=== PATIENT | male | born 1950 | race Caucasian/White ===

== ENCOUNTER → 2018-05-25 09:09 | Outpatient (CLI) | payer OTHER, SELFPAY ==
--- NOTE | 2018-05-25 | DI.MRI.S_ITS ---
PROCEDURE: MR LUMBAR SPINE WO CON INDICATIONS: SPINAL STENOSIS LUMBOSACRAL TECHNIQUE: Noncontrast sagittal T1 spin echo and T2 fast echo, sagittal STIR, axial T1 and T2 fast spin echo through the lumbar spine. In cases with scoliosis, additional coronal T2 fast spin echo may be performed. COMPARISON: None. FINDINGS: Image quality: Excellent. Alignment and Curvature: No plain films are available for comparison, for numbering purposes. Thus, for the purposes of this examination, 5 lumbar type vertebral bodies will be presumed, as denoted on the montage panel. This should be confirmed and correlated with plain films, prior to any lumbar spinal intervention. There is loss of normal lumbar lordosis. Schmorl's nodes invaginate the inferior L1 and superior L2 endplates, with moderate surrounding reactive signal. Small Schmorl's node invaginates the inferior L4 endplate and the inferior L5 endplate with moderate surrounding reactive signal. Moderate reactive signal within the endplates adjacent to the L2-L3 and L4-L5 intervertebral discs. Bone Marrow: Marrow is of normal overall signal. No acute vertebral body compression fractures. Spinal Cord: Conus medullaris terminates at the L1-L2 disc space level. Visualized cord demonstrates normal signal and size. Paraspinous Soft Tissues: No paravertebral masses. L1-L2: Mild disc height loss and desiccation. Mild diffuse disc bulge. Mild facet and ligamentum flavum hypertrophy. Mild epidural lipomatosis. Moderate canal stenosis. Mild bilateral foraminal stenosis. L2-L3: Severe disc height loss and desiccation. Mild diffuse disc osteophyte complex. Mild facet and ligament flavum hypertrophy. Mild epidural lipomatosis. Mild canal stenosis. Mild bilateral foraminal stenosis. L3-L4: Moderate disc desiccation. Moderate facet and ligamentum flavum hypertrophy. Mild epidural lipomatosis. Severe canal stenosis. Moderate subarticular foraminal stenosis bilaterally. L4-L5: Severe disc height loss and desiccation. Mild diffuse disc bulge. Mild facet and ligamentum flavum hypertrophy. Mild epidural lipomatosis. Moderate to severe canal stenosis. Moderate subarticular foraminal stenosis bilaterally. L5-S1: Mild facet hypertrophy bilaterally. No significant canal stenosis. Moderate subarticular foraminal stenosis bilaterally. IMPRESSION: 1. Multilevel degenerative disc and facet disease, as well as ligamentum flavum hypertrophy and epidural lipomatosis. 2. 5 lumbar type vertebral bodies were presumed for the current report. Plain films of the lumbar spine are recommended for confirmation, prior to any lumbar spinal intervention. 3. L1 and L2 Schmorl's nodes, possibly subacute 4. Multilevel canal stenoses, worst at L3-L4, where there is severe canal stenosis, and at L4-L5, where there is moderate to severe canal stenosis. 5. Multilevel foraminal stenoses, worst at L3-L4, L4-L5, and L5-S1 bilaterally where there are moderate foraminal stenoses present. Dictated by: Areli Nicole M.D. on 05/25/2018 at 10:27 Approved by: Areli Nciole M.D. on 05/25/2018 at 10:31
== END ==
PROVIDERS: PCP Internal Medicine; Visit Provider Internal Medicine
DX: M48.07 Spinal stenosis, lumbosacral region (principal); M51.36 Other intervertebral disc degeneration, lumbar region; M48.061 Spinal stenosis, lumbar region without neurogenic claudication; M51.46 Schmorl's nodes, lumbar region; E88.2 Lipomatosis, not elsewhere classified
CPT/HCPCS: 72148

== ENCOUNTER → 2021-08-05 11:35 | Outpatient (CLI) | payer OTHER, SELFPAY ==
[2021-08-05 12:54] LABS: COVID19 -Nasal RAPID Negative (Negative)
== END ==
PROVIDERS: PCP Internal Medicine; Visit Provider Family Medicine Sleep Medicine
DX: Z20.822 Contact with and (suspected) exposure to COVID-19 (principal)
CPT/HCPCS: 87635; C9803

== ENCOUNTER 2021-08-06 06:13 | Day surgery (SDC) | payer OTHER, SELFPAY ==
[2021-07-30 09:41] VITALS: BMI 28.3
[2021-08-06] VITALS (12 sets, daily range): BP systolic 92–142; BP diastolic 47–88; PULSE 60–75; RESP 10–18; TEMP 35.8–37.1; O2SAT 92–96; BMI 28.3
--- NOTE | 2021-08-06 06:30 | DI.RAD.S_ITS ---
PROCEDURE: XR HIP W PEL IF DONE RT 2V INDICATIONS: prosthesis placement/inner-op TECHNIQUE: Four intraoperative fluoroscopic spot images of the low pelvis and right hip were acquired. COMPARISON: None. FINDINGS: Bones: Right hip arthroplasty components are in place. The joint appears congruent. No unexpected fractures. Soft tissues: No suspicious soft tissue densities. IMPRESSION: Expected position of right hip arthroplasty components. Dictated by: Melvi Hurst M.D. on 08/06/2021 at 13:30 Approved by: Melvi Hurst M.D. on 08/06/2021 at 13:32
[2021-08-06] MEDS: ACETAMINOPHEN 325 MG TABLET 975 MG PO (06:59)
[2021-08-06] MEDS: CELECOXIB 200 MG CAPSULE PO (06:59)
[2021-08-06] MEDS: PREGABALIN 75 MG CAPSULE PO (06:59)
[2021-08-06] MEDS: VANCOMYCIN 1,000 MG/200 ML PIGGYBACK 200 MG IV (07:00)
[2021-08-06] MEDS: LACTATED RINGERS 1,000 ML 42 ML IV ×2 (07:05→10:55)
--- NOTE | 2021-08-06 07:39 | PM.PREOP ---
Pre-operative Note COVID-19 COVID-19 status: Negative Interval Note History & Physical reviewed/Exam performed by Physician: Yes Changes to H&P: No
--- NOTE | 2021-08-06 07:40 | P.OP_ITS ---
Operative Date/Time/Diagnoses Date of procedure: 08/06/21 Time of procedure: 08:00 Pre-op diagnosis: right hip oa Post-op diagnosis: same Procedure & Clinicians Procedure: Right total hip arthroplasty anterior approach Same procedure as scheduled: Yes Indications: The patient has had progressively worsening right hip pain with radiographic c hanges consistent with arthritis. Non-operative management has failed and the patient has requested total hip replacement. The risks, benefits and alternatives to surgery were discussed with the patient prior to proceeding. Risks discussed included, but were not limited to, failure to relieve pain, leg length discrepancy, dislocation, stiffness, infection, nerve damage, deep venous thrombosis, pulmonary embolism, stroke, coma, heart attack, permanent paralysis and , as well as the potential need for eventual revision of the prosthetic. Surgeon: Angelica Trejo Marketing Team Lead: Melinda Berger Anesthesia Type: General and Spinal Operative Notes Findings: Severe right hip osteoarthritis, adequate stability Closure Type: primary Specimen(s): none sent Prosthetic devices, grafts, tissues, transplants, or devices: [employer] anthology extended offset size 8, 58 R3 cup, +0 Oxinium head, 36 neutral liner,one 6.5 mm screw Applied: drain(s) Estimated Blood Loss (mL): 250 Blood products transfused: none Procedure in detail: The patient was brought to the operating room. Patient was carefully positioned in the supine position. Time-out was performed and antibiotics were given. Anesthesia was induced. He was positioned in the on the table in order to allow hyperextension of the hip. The right lower extremity was prepped and draped in a standard sterile fashion. An anterior right hip incision was made 1 fingerbreadth lateral to the anterior superior iliac spine and extended distally towards the greater trochanter. Dissection was carried out through skin and subcutaneous tissues. Superficial hemostasis was achieved. The fascia over the tensor fascia howard was defined and incised with a knife. Two Allis clamps were used to grasp the fascia. Tensor fascia howard was retracted laterally. A gelpi retractor was placed. Dissection was carried out down along the neck. The circumflex vessels were carefully identified and cauterized with the Aqua Mantis. There was good visualization of the femoral neck. A Cobra was placed superior to the neck and the gluteus fibers were carefully stripped from that superior aspect of the capsule. A 2nd retractor was placed along the inferior aspect of the neck. The rectus insertion along the capsule was partially released. A 3rd retractor that was then gently placed over the rim of the acetabulum under the rectus. Capsule was carefully incised and released from the intertrochanteric line circumferentially superior to the mid sagittal line and inferiorly to the mid sagittal line until the lesser trochanter was palpable. A tag stitch was placed both in the superior and inferior limb of the capsular insertion. Along the acetabulum capsule was also released up to the mid sagittal 12:00 position. A portion of the labrum was resected. A saw was used to perform an osteotomy at the level of the intertrochanteric line and the junction of the superior femoral neck leaving approximately 1 finger breath of residual inferior neck above the lesser trochanter. A 2nd cut was made along the femoral neck at the base of the head and a napkin ring of neck was removed. Corkscrew was placed in the femoral head and the head was removed without difficulty. Retractors were then repositioned around the acetabulum. Residual labrum was resected and additional osteophytes were removed. A reamer that was 4 mm below the templated size was placed by hand in the acetabulum and it was reamed to centralize the acetabulum. It was then reamed up to 2 under the templated size and fluoroscopy was brought in to confirm the position of the reaming and depth of reaming. I reamed 1 under the anticipated size and touched the rim with line to line reaming. A trial cup was placed and noted that it was appropriately sized and fluoroscopy confirmed position and depth. The component was open and inserted without difficulty fluoroscopic imaging was used to confirm that the cup had been adequately seated and was well positioned. The cup was tested and noted to be stable. It was further stabilized with a single screw. The final liner was inserted. Attention was then directed to the femur. The femur was gently hyperextended additional capsular release was performed as needed in order to allow adequate visualization of the proximal femur with elevation of the femur. Patient was placed in a hyperextended slightly adducted position with maximum external rotation. Box osteotome was used to check for any residual neck as well as sclerotic bone along the trochanter. [place] pepper was placed in the femur. Additional broaching was performed. Canal finder was used to determine the alignment of the canal and position. Size 1 broach was placed. The canal was then appropriately broached up to the templated size as long as there was adequate stability of the broach and serial advancement of the broach without excessive impingement. Specific attention was directed at avoiding varus attempting to direct the distal aspect of the broach more anteriorly and avoiding excessive anteversion. Trial reduction showed acceptable range of motion, good stability, no posterior impingement, religion of leg length and appropriate lateral shuck. I also hyperflexed the hip and checked that there was no impingement anteriorly and there was good stability with flexion, adduction and internal rotation. Marcaine and Exparel were injected. The stem was placed without difficulty. Repeat trial reduction and x-ray showed acceptable overall position, length, and no evidence of the femoral fracture. Final head was placed. Wound was meticulously irrigated with normal saline. The hip was reduced and additional Exparel and Marcaine were injected. The capsule was closed with interrupted nonabsorbable sutures. The fascia of the tensor was closed with interrupted and running Vicryl. No drain was placed. Any tensor fascia howard muscle that appeared to be contused or injured which was a minimal amount was carefully resected. Capsule around the tensor was injected with Exparel and Marcaine. The skin was closed with barbed stitches for the subcutaneous tissue and skin. We also used surgical glue. The wound was dressed sterilely. Brief Betadine soak was also used and was meticulously irrigated with normal saline. Patient was transferred to recovery room in satisfactory condition. Complications: none Post-operative Condition: stable Disposition: observation Plan for aftercare: The patient will be maintained on a standard total hip replacement protocol with weight bearing as tolerated and anterior hip precautions. The patient will receive Aspirin and sequential compression devices for DVT prophylaxis. The patient will be discharged home when safe for the home environment.
[2021-08-06] MEDS: CEFAZOLIN 2 GM/20 ML SYRINGE IV ×2 (08:15→15:49)
--- NOTE | 2021-08-06 08:48 | SUR.OPER ---
Patient supine on padded [place] table, one arm on padded arm board at <90, other arm padded with gel and secured with tape across patient's chest, both legs secured in padded traction boots and positioned per surgeon, padded post at patient's groin with genitals free from pressure, pressure points checked and padded. Directed and approved by surgical attending
[2021-08-06] MEDS: BUPIVACAINE LIPOSOME 266 MG/20 ML VIAL INJ (08:58)
[2021-08-06] MEDS: TRANEXAMIC ACID 1,000 MG VIAL 1000 MG INJ ×2 (08:59→10:56)
[2021-08-06] MEDS: BUPIVACAINE 0.5% (PF) 30 ML, EPINEPHrine 0.15 MG INJ (09:00)
--- NOTE | 2021-08-06 11:09 | DI.RAD.S_ITS ---
PROCEDURE: XR HIP W PEL IF DONE RT 2V INDICATIONS: TOTAL RIGHT HIP / ANTERIOR TECHNIQUE: AP pelvis and lateral view of the right hip acquired. COMPARISON: [facility], [facility], XR HIP W PEL IF DONE RT 2V, 08/06/2021, 9:43. FINDINGS: Bones: Patient is status post right hip arthroplasty, with hardware components in expected positions. The hip joint appears congruent. The visualized bony structures appear intact. Soft tissues: Overlying postoperative changes are noted. No suspicious soft tissue densities. IMPRESSION: Expected postsurgical change for right hip arthroplasty. Dictated by: Erica Bridges MD, PhD on 08/06/2021 at 15:27 Approved by: Erica Bridges MD, PhD on 08/06/2021 at 15:28
[2021-08-06] MEDS: OXYCODONE IR 10 MG TABLET PO ×3 (13:00→18:30)
[2021-08-06] MEDS: ACETAMINOPHEN 325 MG TABLET 650 MG PO ×2 (13:00→18:30)
[2021-08-06] MEDS: IBUPROFEN 400 MG TABLET PO ×2 (13:00→18:31)
[2021-08-06] MEDS: LACTATED RINGERS 1,000 ML 125 ML IV (14:00)
--- NOTE | 2021-08-06 14:19 | PT.IIE ---
Current Diagnoses Unilateral primary osteoarthritis, right hip (08/06/21) Surgery Performed Operation Date: 08/06/21 07:45 Actual Procedures p Total Hip Arthroplasty/Anterior Approach(Right) - Angelica Trejo MD Medical History (Last Updated 07/30/21 @ 10:12 by Sherin Christy RN) Acid reflux Arthritis Carpal tunnel syndrome of right wrist Elevated PSA HLD (hyperlipidemia) Osteoarthritis Seasonal allergies Spinal stenosis Physical Therapy Inpatient Evaluation/Re-Eval M1 PT/OT-IP Prior Functional Status Start: 08/06/21 14:01 Freq: Status: Active Protocol: Document 08/06/21 14:02 (Rec: 08/06/21 14:19 [id number]) Medical Review Prior Functional Status Medical History Reviewed Yes Mobility and Gait Independent with all mobility Activities of Daily Living and IADL's Independent Prior Functional Level (Other details) Independent Social History Household Members spouse Living Arrangements House Number of Floors (Floors) Two Floors Number of Stairs To Enter/Railing? 14 steps with bilateral rail. Bathroom on main floor. Bed/ Bath on second floor. Home Environment Standard Height Toilet Home Equipment Front Wheel Walker Employment Status Retired Additional Social History Comment Retired engineer system administrator M2 PT-IP Current Condition Start: 08/06/21 14:01 Freq: Status: Active Protocol: Document 08/06/21 14:02 (Rec: 08/06/21 14:19 [id number]) Physical Therapy Current Condition Current Condition Evaluation Date 08/06/21 Treatment Diagnosis R KATE - ant approach; difficulty with ambulation Onset Date 08/06/21 M3 PT-IP Subjective Start: 08/06/21 14:01 Freq: Status: Active Protocol: Document 08/06/21 14:02 (Rec: 08/06/21 14:19 [id number]) Subjective Physical Therapy Visit Type Type Initial Evaluation Visit Start Time 13:15 Visit Stop Time 13:58 Total Visit Minutes 40 Physical Therapy Visit Comments Patient Comments What are the movements I should avoid? Patient Goals To make sure the hip heals properly. Therapy Pain Assessment Pain When Pain Assessed During Mobility Pain Present Pain Present Pain Reported Location Right Hip Intensity 4 Scale Used Numeric (0 - 10) Description Acute Pain Management Techniques Apply Cold M4 PT-IP Mobility and Gait Start: 08/06/21 14:01 Freq: Status: Active Protocol: Document 08/06/21 14:02 (Rec: 08/06/21 14:19 [id number]) PT-Bed Mobility Assessment Supine to Sit Supine to Sit Independent Sit to Supine Sit to Supine Independent Scooting Scooting to Edge of Bed Independent PT-Transfer Assessment Sit to and From Stand Sit to and from Stand Independent,Standby Assistance Equipment Transfer Assistive Device Gait Belt,Front Wheeled Walker Transfers Transfer Destination Bed,Chair Transfer Technique Stand Step Pivot Transfer Ability Level of Assist Independent,Standby Assistance Comments Mobility Comments STS from raised bed and from low bench seat in room x8 reps total with cues on technique. Sit<>supine and single leg bridging for adjusting position in bed. BP supine 122 /70 and BP seated 121/68 Gait Assessment Gait Gait Assistance Required: Independent,Standby Assistance Distance (Feet) 275 Able to Maintain Weight Bearing Status Yes During Gait Assistive Devices Assistive Device Gait Belt,Front Wheeled Walker Gait Deviations General Gait Pattern Decreased Stride Length,Step- to Gait Factors Limiting Gait Function Factors Limiting Gait Function Decreased Strength,Limited Range of Motion,Pain Comments Gait Comments Pt ambulated on level terrain with step to gait pattern and slight emerging step through. Educated on short stride length to avoid hip extension. Use of FWW for stability. No physical support needed. Educated and Pt demo'd en bloc turning vs pivot turning to avoid R hip ER. Stair Climbing Assessment Evaluation Level of Assist On Stairs Standby Assistance Devices Stair Climbing Assistive Devices Left Railing,Right Railing Technique/Endurance Stair Climbing Direction Ascend and Descend Stair Climbing Technique Step to Step Number of Steps Climbed 4 Query Text: Comments Stair Climbing Comments Pt able to recall stair technique verbally from a prior PT session. He then was able to demonstrate safe technique. PT-Balance Assessment Sitting Balance and Reactions Static Sitting Balance Ability Normal Dynamic Sitting Balance Ability Normal Standing Balance and Reactions Static Standing Balance Ability Good Dynamic Standing Balance Ability Good Device Used FWW M5 PT-IP Objective Assessments Start: 08/06/21 14:01 Freq: Status: Active Protocol: Document 08/06/21 14:02 (Rec: 08/06/21 14:19 [id number]) Orientation Orientation/Cognition Level of Alertness Alert Orientation Name,Age,Birthday,Month,Date, Year,Day of Week,Place, Situation Language Function Ability No Deficits Noted Gross Range of Motion Upper Extremity ROM Assessment Within Functional Limits Lower Extremity ROM Assessment Right Impaired Impairments R hip not fully assessed; ankle/knee WNLs Strength Upper Extremity Strength Assessment Within Functional Limits Lower Extremity Strength Assessment Right Impaired Hip 3+ to 4-/5 Knee 4/5 Ankle 5/5 Sensation Assessment Sensation Gross Sensation WNL Comments Sensation Comments Reports of numbness in RLE had subsided by time of PT eval. Muscle Tone Muscle Tone WNL Yes M6 PT-IP Treatment Start: 08/06/21 14:01 Freq: Status: Active Protocol: Document 08/06/21 14:02 (Rec: 08/06/21 14:19 [id number]) Physical Therapy Treatment Exercises Exercises Ankle Pumps,Gluteal Sets,Quad Sets,Heel Slides Education Education Provided Precautions,Post-Op Packet, Safety Brace Education Patient,Caregiver Other Treatments Other Treatment Performed Answered all Pt/spouse questions and demo'd when able : car transfers, STS from various surfaces in home, frequency of ambulating, adjusting height of FWW, stair mgmt, Ant hip prec, HEP. M7 PT-IP Assessment and Plan Start: 08/06/21 14:01 Freq: Status: Active Protocol: Document 08/06/21 14:02 (Rec: 08/06/21 14:19 [id number]) PT Summary Assessment and Plan Potential Rehabilitation Potential Excellent Status of Condition at Evaluation Stable Summary Impairments Pain,ROM,Strength,Transfers, Gait,Activity Tolerance Progress Towards Goals Progressing Toward Goals Assessment Summary Pt admitted for R KATE (ant approach) due to OA. His PLOF was fully independent. CLOF requires SBA to modif I with walker for bed mobility, transfers and gait/stair mgmt. He has been educated by prior PT regarding hip precautions and compensatory strategies. He and spouse present rather fabiana on KATE and precaution needs. He lives in a two story home with bedroom upstairs. Plan is to only go upstairs 1x daily at bedtime. Spouse to walk the FWW up the stairs while Pt uses bilateral railing. Reviewed in detail anterior hip precautions and what functional mobility that may affect. Discussed DME and sized FWW to Pt. At this time, recommend d/c home with spouse. He is mobilizing very well post op; needing at most SBA for safety. If still present tomorrow (per nsng anticipate evening d/c), PT will return to review any final questions and mobility concerns. Goals Bed Mobility Goal Independent Transfer Goal Independent Gait Goal Independent,Front Wheel Walker Other Goals Pt will I'ly ascend/descend 3- 4 step simulator in sung x3 reps to replicate number of stairs at home to manage. Days to Meet Goals 2 Frequency of Treatment Frequency Of Treatment Twice a Day Treatment Plan Physical Therapy Treatment Plan Bed Mobility Training,Transfer Training,Gait Training, Therapeutic Exercise,Balance Retraining,Post Op Education, Discharge Planning,Hot or Cold Pack,Neuromuscular Re-ed, Coordination Retraining Precautions Anterior Hip Precautions No Hip Extension,No Hip External Rotation Weight Bearing Status Weight Bearing Status Weight Bear as Tolerated Allowed Weight Bearing Amount (enter % RLE WBAT or #) (%) Recommendations To Nursing Amount of Assist Needed Standby Assistance Discharge Recommendations PT Discharge Recommendations Home with Assistance Transportation Needs at Discharge Private Vehicle
== END 2021-08-06 18:35 | disposition home or self-care (01) ==
LOC: OR 06:14 → AC 06:15
PROVIDERS: PCP Internal Medicine; Referring Provider Orthopaedic Surgery; Visit Provider Orthopaedic Surgery
PROC: (CPT 27130; principal; 2021-08-06 07:45)
DX: M16.11 Unilateral primary osteoarthritis, right hip (principal)
CPT/HCPCS: 27130; 73502; 76000; 97161; 97530; C1776; C9290; J0171; J0690; J1100; J2250; J2405; J2704; J3010

== ENCOUNTER → 2021-09-19 09:39 | Outpatient (CLI) | payer OTHER, SELFPAY ==
[2021-08-06 17:57] VITALS: BMI 28.3
[2021-09-19 10:13] LABS: Hematocrit 43.4 % (41-53); Hemoglobin 14.6 g/dL (13.5-17.5); Mean Corpuscular HGB Conc 33.6 % (30-36); Mean Corpuscular Hemoglobin 30.4 PG (26-34); Mean Corpuscular Volume 90.4 fL (80-100); Platelet Count 238 X10^3/uL (150-400); Red Cell Distribution Width 14.9 % (11.6-14.8); White Blood Cell Count 5.6 X10^3/uL (4.5-11.0)
[2021-09-19 10:53] LABS: Alanine Aminotransferase 23 IU/L (<50); Albumin 4.4 g/dL (3.5-5.0); Albumin Globulin Ratio 1.7 (1.0-2.8); Alkaline Phosphatase 81 U/L (38-126); Aspartate Aminotransferase 33 IU/L (17-59); BUN Creatinine Ratio 19.5 (6-22); Blood Urea Nitrogen 15 mg/dL (9-20); Calcium 9.3 mg/dL (8.4-10.2); Carbon Dioxide 28 mmol/L (22-32); Chloride 103 mmol/L (98-107); Cholesterol 195 mg/dL (140-199); Estimated Glomerular Filt Rate > 60 mL/min (>60); Globulin 2.6 g/dL (1.7-4.1); Glucose 104 mg/dL (80-110); HDL Cholesterol 70 mg/dL (40-60); HEMOLYSIS < 15 (0-50); LDL Cholesterol Calculated 101 mg/dL (<100); Potassium 4.3 mmol/L (3.4-5.1); Sodium 137 mmol/L (137-145); Triglycerides 121 mg/dL (35-150)
[2021-09-19 11:38] LABS: Vitamin B12 474 pg/mL (239-931)
[2021-09-19 12:11] LABS: TSH w/ Reflex to FT4 3.78 uIU/mL (0.47-4.68)
== END ==
PROVIDERS: PCP Internal Medicine; Referring Provider Internal Medicine; Visit Provider Internal Medicine
DX: E53.8 Deficiency of other specified B group vitamins (principal); E78.2 Mixed hyperlipidemia; R03.0 Elevated blood-pressure reading, without diagnosis of hypertension
CPT/HCPCS: 36415; 80053; 80061; 82607; 84443; 85027

== ENCOUNTER → 2022-02-28 12:07 | Outpatient (CLI) | payer OTHER, SELFPAY ==
[2021-08-06 17:57] VITALS: BMI 28.3
[2022-02-28 16:41] LABS: HEMOLYSIS < 15 (0-50)
[2022-02-28 16:46] LABS: Blood Urea Nitrogen 13 mg/dL (9-20); Calcium 9.2 mg/dL (8.4-10.2); Carbon Dioxide 26 mmol/L (22-32); Chloride 103 mmol/L (98-107); Cholesterol 184 mg/dL (140-199); Estimated Glomerular Filt Rate > 60 mL/min (>60); Glucose 103 mg/dL (80-110); HDL Cholesterol 57 mg/dL (40-60); LDL Cholesterol Calculated 89 mg/dL (<100); Potassium 4.3 mmol/L (3.4-5.1); Sodium 137 mmol/L (137-145); Triglycerides 190 mg/dL (35-150)
[2022-02-28 17:28] LABS: Prostate Specific Antigen 2.71 ng/mL (0.10-4.00)
== END ==
PROVIDERS: PCP Internal Medicine; Referring Provider Internal Medicine; Visit Provider Internal Medicine
DX: E78.2 Mixed hyperlipidemia (principal); N13.8 Other obstructive and reflux uropathy; N40.1 Benign prostatic hyperplasia with lower urinary tract symptoms; R03.0 Elevated blood-pressure reading, without diagnosis of hypertension; R97.20 Elevated prostate specific antigen [PSA]
CPT/HCPCS: 36415; 80048; 80061; 84153

== ENCOUNTER → 2022-04-08 10:41 | Outpatient (CLI) | payer MEDICARE, OTHER, SELFPAY ==
[2021-08-06 17:57] VITALS: BMI 28.3
--- NOTE | 2022-04-08 | DI.MRI.S_ITS ---
PROCEDURE: MR LUMBAR SPINE WO CON INDICATIONS: Spinal stenosis, lumbar region with neurogenic cla TECHNIQUE: Noncontrast sagittal T1 spin echo and T2 fast echo, sagittal STIR, and T2 fast spin echo through the lumbar spine. In cases with scoliosis, additional coronal T2 fast spin echo may be performed. COMPARISON: [facility], MR, MR LUMBAR SPINE WO CON, 05/25/2018, 9:38. [facility], CR, XR LUMBAR SPINE WITH OBLIQUES PLUS FLEXION EXTENSION, 01/22/2022, 11:56. FINDINGS: Image quality: Excellent. Alignment and Curvature: There is overall straightening of the normal lumbar lordosis. There is minimal anterolisthesis at L3-L4, with minimal retrolisthesis at L4-L5 and at L5-S1. Mild levoconvex scoliotic curvature is noted. Bone Marrow: Marrow is of normal overall signal. No acute vertebral body compression fractures. Spinal Cord: Conus medullaris terminates at the L1 level. Visualized cord demonstrates normal signal and size. Paraspinous Soft Tissues: No paravertebral masses. T12-L1: Normal appearance. L1-L2: Moderate loss of disc height is seen. Loss of disc signal is seen. Reactive marrow endplate changes are seen, which are hyperintense on T1-weighted and T2-weighted imaging and most consistent with fatty metaplasia (Modic type II changes). Moderate disc bulge is seen, with a central/right disc protrusion, which continues into the right neural foramen, as on series 5, image 11. Mild to moderate facet hypertrophy is seen. There is at least moderate left-sided and moderate right-sided neural foraminal narrowing. Moderate central canal narrowing is seen. These imaging findings have progressed compared to the prior study. L2-L3: At least moderate loss of disc height and disc signal can be seen. Reactive marrow endplate changes are seen, which are hyperintense on T1-weighted and T2-weighted imaging and most consistent with fatty metaplasia (Modic type II changes). At least moderate disc bulge is seen, which is eccentric to the right. Posteriorly projected endplate osteophytes are seen. Mild facet joint hypertrophy is seen. There is at least moderate left-sided and moderate right-sided neural foraminal narrowing. Moderate central canal narrowing is seen. These degenerative changes are slightly progressed compared to 2019. L3-L4: Mild loss of disc height is seen. Loss of disc signal is seen. Reactive marrow endplate changes are seen which are hypointense on T1-weighted imaging and hyperintense on T2 weighted imaging, which is most consistent with edema (Modic type I changes). At least moderate disc bulge is seen. There is a superimposed central disc protrusion. Prominent facet hypertrophy is seen. At least moderate bilateral neural foraminal narrowing can be seen. Moderate to severe central canal narrowing is seen, as on series 5, image 22. These imaging findings have progressed compared to the prior study. L4-L5: Moderate loss of disc height is seen. Loss of disc signal is seen. Reactive marrow endplate changes are seen, which are hyperintense on T1-weighted and T2-weighted imaging and most consistent with fatty metaplasia (Modic type II changes). At least moderate disc bulge is seen, which is eccentric to the left. Moderate facet joint hypertrophy is seen. Moderate to severe bilateral neural foraminal narrowing can be seen, left worse than right. There is a degree of compression seen upon the exiting nerve roots. Moderate central canal narrowing is seen. These degenerative changes are slightly progressed compared to 2019. L5-S1: The disc height and disk signal are relatively well-preserved. Mild generalized disc bulge is seen. Mild facet joint hypertrophy is seen. There is moderate to severe left-sided and at least moderate right-sided neural foraminal narrowing. There is a degree of compression seen upon the exiting nerve roots. Mild central canal narrowing is seen. When comparison is made with the prior images, these findings are similar. 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 Dictated by: Jeronimo Stroud M.D. on 04/08/2022 at 13:04 Approved by: Jeronimo Stroud M.D. on 04/08/2022 at 13:10
== END ==
PROVIDERS: PCP Internal Medicine; Referring Provider Physical Medicine & Rehabilitation; Visit Provider Physical Medicine & Rehabilitation
DX: M48.062 Spinal stenosis, lumbar region with neurogenic claudication (principal); M47.816 Spondylosis without myelopathy or radiculopathy, lumbar region; M47.817 Spondylosis without myelopathy or radiculopathy, lumbosacral region
CPT/HCPCS: 72148

== ENCOUNTER → 2023-03-03 10:46 | Outpatient (CLI) | payer MEDICARE, OTHER, SELFPAY ==
[2021-08-06 17:57] VITALS: BMI 28.3
[2023-03-03 12:08] LABS: Aspartate Aminotransferase 36 IU/L (17-59); BUN Creatinine Ratio 18.4 (6-22); Blood Urea Nitrogen 14 mg/dL (9-20); Calcium 9.5 mg/dL (8.4-10.2); Carbon Dioxide 26 mmol/L (22-32); Chloride 103 mmol/L (98-107); Cholesterol 182 mg/dL (140-199); Estimated Glomerular Filt Rate > 60 mL/min (>60); Glucose 98 mg/dL (80-110); HDL Cholesterol 60 mg/dL (40-60); HEMOLYSIS < 15 (0-50); LDL Cholesterol Calculated 99 mg/dL (<100); Potassium 4.6 mmol/L (3.4-5.1); Sodium 136 mmol/L (137-145); Triglycerides 114 mg/dL (35-150)
== END ==
PROVIDERS: PCP Internal Medicine; Referring Provider Internal Medicine; Visit Provider Internal Medicine
DX: N40.1 Benign prostatic hyperplasia with lower urinary tract symptoms (principal); E78.2 Mixed hyperlipidemia; N13.8 Other obstructive and reflux uropathy; R97.20 Elevated prostate specific antigen [PSA]
CPT/HCPCS: 36415; 80048; 80061; 84153; 84450